=== PATIENT | male | born 1960 | race Caucasian/White ===

== ENCOUNTER 2019-12-17 19:27 | Emergency (ER) | payer OTHER, SELFPAY ==
--- NOTE | ~2019-12-17 | CT_ITS ---
EXAMINATION: CT brain wo con DATE: 12/17/2019 22:58 INDICATION: Headache and neck pain post fall TECHNIQUE: Computed tomography (CT) of the head was performed without intravenous contrast. Sagittal and coronal reconstructions were performed. The mA was adjusted according to patient size. Iterative reconstruction technique was employed. The dose-length product was 681.00 mGy-cm. COMPARISON: None FINDINGS: No fracture. No acute intracranial hemorrhage, acute infarction or abnormal extra axial fluid collect ion. Ventricles are normal and symmetric. No mass/mass effect. The orbits, and paranasal sinuses are normal. Small right mastoid effusion. IMPRESSION: 1. No fracture or acute intracranial process. Reviewed, dictated and finalized at location A.
--- NOTE | ~2019-12-17 | XR_ITS ---
EXAMINATION: XR thoracic spine 2V, XR lumbar spine 2-3V DATE: 12/17/2019 23:06 INDICATION: Diffuse spine pain post fall with tingling in the left arm TECHNIQUE: 1. AP, lateral and lateral swimmer's views of the thoracic spine were obtained. 2. AP, lateral and coned-down lumbosacral views of the lumbar spine were obtained. COMPARISON: None. FINDINGS: Alignment of the thoracic and lumbar spine is normal with normal vertebral body heights. Multilevel m ild disc height loss with mild degenerative endplate changes in the mid to lower thoracic spine. Lumb ar disc heights are normal with minimal degenerative endplate changes. 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 Mild lower lumbar facet osteoarthritis. Chol ecystectomy clips in the right upper quadrant. Visualized lungs are clear with no pleural effusion or pneumothorax. IMPRESSION: 1. Mild thoracic and lumbar spondylosis. No evident acute osseous abnormality. Reviewed, dictated and finalized at location A. IMPRESSION: 1. Mild thoracic and lumbar spondylosis. No evident acute osseous abnormality.
--- NOTE | ~2019-12-17 | CT_ITS ---
EXAMINATION: CT cervical spine wo con DATE: 12/17/2019 22:59 INDICATION: Neck pain post fall with head injury. Tingling in the left arm. TECHNIQUE: Computed tomography (CT) of the cervical spine was performed without intravenous contrast. Automated exposure control and iterative reconstruction technique were employed. The dose-length pro duct was 536.38 mGy-cm. COMPARISON: None FINDINGS: Straightening of the normal cervical lordosis which is likely positional. No spondylolisthesis or fac et subluxation. Vertebral body heights are normal. No fracture. Mild disc height loss at C4-C5 and C5 -C6. Cervical soft tissues are unremarkable. Visualized airway and apices of the lungs are clear. The following disc levels are specifically discussed: C2-C3: The disc does not extend beyond the endplate margin. There is mild bilateral uncovertebral jaida nt osteoarthritis. There is mild bilateral facet joint osteoarthritis. There is no neural foraminal s tenosis. There is no central canal stenosis. C3-C4: Disc is mildly bulging. There is mild bilateral uncovertebral joint osteoarthritis. There is m ild right and moderate left facet joint osteoarthritis. There is mild left neural foraminal stenosis. There is minimal central canal stenosis. C4-C5: Disc is bulging. There is minimal bilateral uncovertebral joint osteoarthritis. There is mild right facet joint osteoarthritis. There is no neural foraminal stenosis. There is mild central canal stenosis. C5-C6: Disc is bulging. There is mild right uncovertebral joint osteoarthritis. There is minimal bila teral facet joint osteoarthritis. There is no neural foraminal stenosis. There is mild central canal stenosis. C6-C7: Mild disc osteophyte complex. There is mild bilateral uncovertebral joint osteoarthritis. Ther e is mild right and minimal left facet joint osteoarthritis. There is no neural foraminal stenosis. T here is mild central canal stenosis. C7-T1: The disc does not extend beyond the endplate margin. There is no uncovertebral joint osteoarth ritis. There is mild bilateral facet joint osteoarthritis. There is no neural foraminal stenosis. The re is no central canal stenosis. IMPRESSION: 1. Mild cervical spondylosis. No acute osseous abnormality. Reviewed, dictated and finalized at location A.
[2019-12-17 19:40] VITALS: BP 177/86; PULSE 82; RESP 20; TEMP 37.3; O2SAT 100
[2019-12-17 21:55] LABS: Basophils Percent Auto 0.5 % (0.2-1.2); Eosinophils Absolute Auto 0.1 K/mm3 (0-0.3); Hematocrit 44.9 % (42.0-52.0); Hemoglobin 14.9 g/dL (14.0-18.0); Immature Granulocyte Absolute 0.02 K/mm3 (0.00-0.031); Immature Granulocyte Percent A 0.5 % (0-0.5); Lymphocytes Absolute Auto 0.91 K/mm3 (0.9-3.2); Lymphocytes Percent Auto 22.3 % (18.3-44.2); Mean Corpuscular HGB Conc 33.2 g/dl (32-36); Mean Corpuscular Hemoglobin 29.3 pg (26-34); Mean Corpuscular Volume 88.4 fl (80-100); Mean Platelet Volume 9.5 fl (7.4-10.4); Monocytes Absolute Auto 0.5 K/mm3 (0.1-0.6); Neutrophils Absolute Auto 2.5 K/mm3 (1.3-6.7); Neutrophils Percent Auto 61.7 % (45.5-73.1); Platelet Count Result 171 k/mm3 (150-375); Red Blood Count 5.08 M/mm3 (4.6-6.20); Red Cell Distribution Width 13.8 % (11.5-14.5); White Blood Count 4.1 K/mm3 (4.5-10.0)
[2019-12-17 22:37] LABS: Add Urine Microscopic? YES; Appearance Urine Clear (Clear); Bilirubin Urine Negative (Negative); Blood Urine Negative (Negative); Color Urine Yellow (Yellow); Glucose Urine UA 1+ mg/dL (Negative); Ketones Urine Negative (Negative); Leukocyte Esterase Ur Negative LEU/UL (Negative); Mucus Urine Few /lpf; Nitrate Urine Negative (Negative); Protein Urine 2+ mg/dL (Negative); RBC Urine 0-2 /hpf (0-2); Specific Grav Ur 1.026 (1.001-1.035); Squamous Epithelial Cell Urine Rare /hpf (Few); Urobilinogen Urine Negative mg/dL (<2.0); WBC Urine 0-3 /hpf
[2019-12-17 22:42] VITALS: BP 160/104; PULSE 78; RESP 18; O2SAT 99
[2019-12-17 22:50] LABS: Alanine Aminotransferase 31 U/L (4-50); Albumin Level 4.2 g/dL (3.5-5.1); Alkaline Phosphatase 88 U/L (38-126); Anion Gap 9 mmol/L (8-16); Aspartate Amino Transferase 52 U/L (17-59); Bilirubin,Total 0.7 mg/dL (0.2-1.3); Blood Urea Nitrogen 17 mg/dL (9-20); Calcium 8.5 mg/dL (8.4-10.2); Carbon Dioxide 27 mmol/L (22-30); Chloride 101 mmol/L (98-107); Creatine Kinase 177 U/L (55-170); Estimated Glomerular Filt Rate > 60; Glucose 154 mg/dL (75-110); Sodium 137 mmol/L (137-145)
--- NOTE | 2019-12-17 23:06 | PC.NURSE ---
Pt. to ct
--- NOTE | 2019-12-17 23:06 | PC.NURSE ---
Assumed care of pt at this time. Report from [facility]
--- NOTE | 2019-12-18 | ED.GENADULT ---
HPI - General Adult General Chief complaint: Fall Stated complaint: body aches since monday Time Seen by Provider: 12/17/19 21:38 Source: patient Limitations: no limitations History of Present Illness HPI narrative: Patient is a 59 y/o male complaining of headache, neck pain, back and bodyache. He states that he fell 4 days ago and again 3 days ago. He states that he did not have much pain initially, but pain is getting worse. He has not taken any meds for pain. He did use Biofreeze which did not help with his pain. He states that his pain is aching and rate it as 8/10. Related Data Home Medications Medication Instructions Recorded Confirmed finasteride 5 mg PO DAILY 12/17/19 lisinopril 20 mg PO DAILY 12/17/19 Allergies Allergy/AdvReac Type Severity Reaction Status Date / Time No Known Allergies Allergy Unknown Verified 01/07/18 13:45 Review of Systems Constitutional: Constitutional: Denies chills, Denies fever(s), Reports headache(s) and Denies weakness Eyes: Eyes: Denies blurry vision ENT: Reports headache(s) and Denies neck pain Cardiovascular: Cardiovascular: Denies chest pain and Denies dyspnea Respiratory: Respiratory: Denies cough and Denies dyspnea Gastrointestinal: Gastrointestinal: Denies abdominal pain, Denies diarrhea, Denies nausea and Denies vomiting Genitourinary: Genitourinary: Denies hematuria and Denies dysuria Musculoskeletal: Musculoskeletal: Reports back pain and Reports neck pain Neurologic: Reports headache(s) and Denies weakness [facility] Social History Social History Gender identity (if verbalized by the patient): Male Exam Const: General: no acute distress and well developed Orientation/consciousness: oriented to person, oriented to place, oriented to time and patient oriented x3 HENMT: Head: normocephalic Ears: external ears normal General nose exam: Normal external nose present Eyes: General: appearance normal, both eyes and all related structures Conjunctivae: conjunctivae normal Neck: Neck: normal visual inspection and full ROM Chest: Chest palpation & inspection: normal inspection of the chest and no tenderness Resp: Effort & Inspection: normal respiratory effort Auscultation: clear to auscultation bilaterally Cardio: Rate: regular rate Rhythm: regular rhythm GI: GI Palp: No abdominal tenderness and Yes Soft to palpation Skin: General skin exam: normal color and turgor normal Neuro: General: oriented to person, oriented to place, oriented to time and patient oriented x3 Cognition (Neuro): normal cognition Extrem: General: normal to inspection, full ROM and no pedal edema Psych: Appearance: grossly normal Mental Status: mental status grossly normal Affect: normal affect Course Vital Signs Vital signs: Vital Signs Temperature 37.3 C 12/17/19 19:40 Pulse Rate 82 12/17/19 19:40 Respiratory Rate 20 12/17/19 19:40 Blood Pressure 177/86 H 12/17/19 19:40 Pulse Oximetry 100 12/17/19 19:40 Temperature 37.3 C 12/17/19 19:40 Pulse Rate 90 12/18/19 00:37 Respiratory Rate 20 12/18/19 00:37 Blood Pressure 157/99 H 12/18/19 00:37 Pulse Oximetry 98 12/18/19 00:37 Medical Decision Making Vital Signs Vital Signs: Vital Signs Temperature 37.3 C 12/17/19 19:40 Pulse Rate 82 12/17/19 19:40 Respiratory Rate 20 12/17/19 19:40 Blood Pressure 177/86 H 12/17/19 19:40 Pulse Oximetry 100 12/17/19 19:40 Temperature 37.3 C 12/17/19 19:40 Pulse Rate 90 12/18/19 00:37 Respiratory Rate 20 12/18/19 00:37 Blood Pressure 157/99 H 12/18/19 00:37 Pulse Oximetry 98 12/18/19 00:37 Lab Data Result diagrams: 12/17/19 21:49 12/17/19 21:49 Labs: Lab Results 12/17/19 12/17/19 12/17/19 Range/Units 21:49 21:49 22:27 WBC 4.1 L (4.5-10.0) K/mm3 RBC 5.08 (4.6-6.20) M/mm3 Hgb 14.9 (14.0-18.0) g/dL Hct 44.9
[2019-12-18 00:37] VITALS: BP 157/99; PULSE 90; RESP 20; O2SAT 98
== END 2019-12-18 00:37 | disposition home or self-care (01) ==
PROVIDERS: Emergency Provider Emergency Medicine
DX: R51 Headache (principal); M79.10 Myalgia, unspecified site; W19.XXXA Unspecified fall, initial encounter
CPT/HCPCS: 36415; 70450; 72070; 72100; 72125; 80053; 81001; 82550; 85025; 99284; A9270

== ENCOUNTER 2020-06-19 03:38 | Day surgery (SDC) | payer OTHER, SELFPAY ==
[2020-06-19] VITALS (7 sets, daily range): BP systolic 135–186; BP diastolic 88–137; PULSE 77–89; RESP 16–27; TEMP 36.6–36.7; O2SAT 96–99
[2020-06-19] MEDS: GLUCAGON FOR INJ 1 MG VIAL IV PUSH ×2 (03:50→04:20)
--- NOTE | 2020-06-19 03:51 | ED.GENADULT ---
HPI - General Adult General Chief complaint: Skin/Abscess/Foreign Body Stated complaint: Meat stuck in throat Time Seen by Provider: 06/19/20 03:42 History of Present Illness HPI narrative: Patient is a 59-year-old gentleman who presents the emergency department with chief complaint of esophageal food impaction. The patient reports he was eating a pork steak this evening and felt as though it got stuck in his esophagus. The patient reports he has had this happen before in the past he attempted to take some sublingual nitro that he had at home but stated it was somewhat . Patient states that he has been unable to swallow and unable to handle his secretions. Patient reports that he is usually been able to pass it after he receives medication in the emergency department. Related Data Home Medications Medication Instructions Recorded Confirmed finasteride 5 mg PO DAILY 12/17/19 lisinopril 20 mg PO DAILY 12/17/19 Allergies Allergy/AdvReac Type Severity Reaction Status Date / Time No Known Allergies Allergy Unknown Verified 01/07/18 13:45 Review of Systems Review of Systems: Narrative: A 10 system review of systems was completed on the patient and is negative except for what is stated in the HPI. Nursing and ancillary documentation was reviewed. [facility] Social History Social History Gender identity (if verbalized by the patient): Male Comments History of cardiac disease has stents History of esophageal food impactions Social history the patient denies smoking Exam Narrative: Exam Narrative: GENERAL: Well-appearing, well-nourished, and in no acute distress. HEAD: Normocephalic, atraumatic. EYES: PERRLA and EOMI. ENT: Nares clear, no rhinorrhea or epistaxis. Mucous membranes moist. NECK: Supple. CHEST: Clear to auscultation. No respiratory distress. HEART: Regular rate and rhythm. No murmur heard. Normal peripheral pulses. ABDOMEN: Soft, nontender, nondistended, normal active bowel sounds. EXTREMITIES: Normal range of motion. No edema. SKIN: Warm, dry, no rash. NEURO: No focal deficits. Alert and oriented x3. PSYCH: Normal mood and affect. Course Course Emergency Course: Patient was treated with glucagon and sublingual nitro without success. The case was discussed with the on-call GI provider and the patient will be taken to the endoscopy suite this morning for endoscopy. Vital Signs Vital signs: Vital Signs Temperature 36.6 C 06/19/20 03:44 Pulse Rate 89 06/19/20 03:44 Respiratory Rate 18 06/19/20 03:44 Blood Pressure 186/137 H 06/19/20 03:44 Pulse Oximetry 99 06/19/20 03:44 Temperature 36.6 C 06/19/20 03:44 Pulse Rate 87 06/19/20 04:39 Respiratory Rate 18 06/19/20 04:39 Blood Pressure 172/94 H 06/19/20 04:39 Pulse Oximetry 96 06/19/20 04:39 Medical Decision Making Vital Signs Vital Signs: Vital Signs Temperature 36.6 C 06/19/20 03:44 Pulse Rate 89 06/19/20 03:44 Respiratory Rate 18 06/19/20 03:44 Blood Pressure 186/137 H 06/19/20 03:44 Pulse Oximetry 99 06/19/20 03:44 Temperature 36.6 C 06/19/20 03:44 Pulse Rate 87 06/19/20 04:39 Respiratory Rate 18 06/19/20 04:39 Blood Pressure 172/94 H 06/19/20 04:39 Pulse Oximetry 96 06/19/20 04:39 Discharge Plan Discharge Clinical Impression: Esophageal foreign body Qualifiers: Encounter type: initial encounter Qualified Code(s): T18.108A - Unspecified foreign body in esophagus causing other injury, initial encounter Patient Disposition: Still a Patient Condition: Stable Prescriptions: No Action lisinopril 20 mg tablet 20 mg PO DAILY RF: 0 finasteride 5 mg tablet 5 mg PO DAILY RF: 0 adifjeknue-pynotwgylqxho-irim [Fioricet] 50-300-40 mg capsule 1 cap PO Q8H PRN (Reason: headache) Qty: 10 RF: 0 cyclobenzaprine 5 mg tablet 5 mg PO TID PRN (Reason: muscle spasm) Qty: 15 RF: 0 Follow
[2020-06-19] MEDS: NITROGLYCERIN SL 0.4 MG TABLET SUBLINGUAL (04:21)
--- NOTE | 2020-06-19 04:40 | PC.NURSE ---
pt attempted to drink water, immediately vomited . MD dahl
--- NOTE | 2020-06-19 05:58 | WPDANESEPP ---
Anes - Eval Pre Procedure Date/Time: 06/19/20 05:58 Pre Op Diagnosis: Meat stuck in throat Patient Data Age: 59 Gender: M Height: 1.75 m Weight: 120 kg Last Vital Signs Temp 36.6 C 06/19/20 03:44 Pulse 87 06/19/20 04:39 Resp 18 06/19/20 04:39 BP 172/94 H 06/19/20 04:39 Pulse Ox 96 06/19/20 04:39 Allergies Allergy/AdvReac Type Severity Reaction Status Date / Time No Known Allergies Allergy Unknown Verified 01/07/18 13:45 Home Medications Medication Instructions Recorded Confirmed Type finasteride 5 mg PO DAILY 12/17/19 History lisinopril 20 mg PO DAILY 12/17/19 History fornqtxjtt-vtbenmwmmisgt-opaz 1 cap PO Q8H PRN #10 cap 12/18/19 Rx [Fioricet] cyclobenzaprine 5 mg PO TID PRN #15 tablet 12/18/19 Rx Patient hx anesthesia problems: none Family hx anesthesia problems: none PMFSH Social History Social History Gender identity (if verbalized by the patient): Male Exam Day of Procedure 06/19/20 05:58 Patient weight: obese Heart: regular rate and rhythm Lungs: clear to auscultation and normal air movement Airway: Mallampati scale class II Neurological: alert and oriented
[2020-06-19] MEDS: LACTATED RINGERS 1,000 ML 150 ML IV CONT (06:37)
[2020-06-19 06:40] LABS: Glucose Point of Care 381 (65-105)
--- NOTE | 2020-06-19 06:57 | WPDANESEPPF ---
Anes - Initial Pre Proc Eval Procedure: Operation Date: 06/19/20 07:30 Proposed Procedures p Esophagogastroduodenoscopy - Demetrius Daigle MD Date/Time: 06/19/20 06:57 Surgeon: Demetrius Daigle MD Pre Op Diagnosis: food bolus Patient Data Age: 59 Gender: M Height: 5 ft 9 in Weight: 120 kg Last Vital Signs Temp 36.7 C 06/19/20 06:31 Pulse 77 06/19/20 06:31 Resp 16 06/19/20 06:31 BP 147/88 H 06/19/20 06:31 Pulse Ox 97 06/19/20 06:31 Allergies Allergy/AdvReac Type Severity Reaction Status Date / Time No Known Allergies Allergy Unknown Verified 06/19/20 06:25 Home Medications Medication Instructions Recorded Confirmed Type finasteride 5 mg PO DAILY 12/17/19 06/19/20 History lisinopril 20 mg PO DAILY 12/17/19 06/19/20 History aspirin 81 mg PO DAILY 06/19/20 06/19/20 History canagliflozin-metformin [Invokamet] 1 tablet PO BID 06/19/20 06/19/20 History cholecalciferol (vitamin D3) 50,000 unit PO WEEKLY 06/19/20 06/19/20 History insulin glargine U-300 conc 35 unit SUBCUT BID 06/19/20 06/19/20 History [Toujeo Max U-300 SoloStar] omeprazole 20 mg PO BID 06/19/20 06/19/20 History rosuvastatin 20 mg PO DAILY 06/19/20 06/19/20 History tamsulosin 0.4 mg PO DAILY 06/19/20 06/19/20 History Laboratory Tests 06/19/20 06:34 POC Capillary Glucose 381 mg/dl H mg/dl (65-105) Patient hx anesthesia problems: none Family hx anesthesia problems: none PMFSH Past Medical History Medical History (Updated 06/19/20 @ 06:58 by Yeison Galvez MD) CAD (coronary artery disease) Diabetes Morbid obesity [place] (obstructive sleep apnea) Social History Social History Gender identity (if verbalized by the patient): Male Anes - Eval Final PreProcedure Day of Procedure 06/19/20 06:57 Patient weight: morbidly obese Heart: regular rate and rhythm Lungs: clear to auscultation Airway: Mallampati scale class II Neurological: alert and oriented Last oral intake: >/= 8 hours ASA classification: III Emergent: no Anesthetic plan: proceed Anesthesia type and monitoring: general (GIVS with possible ETT) GIVS and standard monitoring Informed Consent: The patient's anesthetic plan and its attendant risks and benefits were discussed with the patient/family/POA. Questions were solicited and answers provided to the satisfaction of the patient/family/POA.
--- NOTE | 2020-06-19 07:20 | PM.HPGS ---
History of Present Illness History of Present Illness Consent: Risks, benefits, and alternatives have been discussed and questions answered. Patient agrees to proceed with procedure. Chief complaint: food bolus Narrative: Oj Case is a 59 year old male with history of GERD on prilosec and also dysphagia, he has been in ER previously with food bolus but always resolved after medical treatment, never had EGD. Yesterday had pork chop, then unable to swallow anymore, glucagon this time did not work and I was asked by ER to assess patient. Review of Systems Constitutional: Constitutional: Denies headache(s) and Denies weakness Eyes: Eyes: Denies blurry vision ENT: Reports Normal hearing present, Denies headache(s) and Denies neck pain Cardiovascular: Cardiovascular: Denies chest pain and Denies dyspnea Respiratory: Respiratory: Denies dyspnea Gastrointestinal: Gastrointestinal: Reports no additional gastrointestinal complaints Genitourinary: Genitourinary: Denies dysuria Musculoskeletal: Musculoskeletal: Denies neck pain Integumentary/Breasts: Skin/Breast: Denies dry skin Neurologic: Reports Normal hearing present, Denies headache(s) and Denies weakness Psychiatric: Psychiatric: Denies anxiety Endocrine: Endocrine: Denies change in body appearance Hematologic/Lymphatic: Hematologic/Lymphatic: Denies easy bleeding Allergic/Immunologic: Allergic/Immunologic: Denies urticaria PMFSH Past Medical History Medical History (Updated 06/19/20 @ 07:22 by Demetrius Daigle MD) CAD (coronary artery disease) Diabetes Dysphagia Morbid obesity [place] (obstructive sleep apnea) Social History Social History Gender identity (if verbalized by the patient): Male Meds Home Medications and Allergies Home Medications Medication Instructions Recorded Confirmed Type finasteride 5 mg PO DAILY 12/17/19 06/19/20 History lisinopril 20 mg PO DAILY 12/17/19 06/19/20 History aspirin 81 mg PO DAILY 06/19/20 06/19/20 History canagliflozin-metformin [Invokamet] 1 tablet PO BID 06/19/20 06/19/20 History cholecalciferol (vitamin D3) 50,000 unit PO WEEKLY 06/19/20 06/19/20 History insulin glargine U-300 conc 35 unit SUBCUT BID 06/19/20 06/19/20 History [Kalyani Concepcion U-300 SoloStar] omeprazole 20 mg PO BID 06/19/20 06/19/20 History rosuvastatin 20 mg PO DAILY 06/19/20 06/19/20 History tamsulosin 0.4 mg PO DAILY 06/19/20 06/19/20 History Allergies Allergy/AdvReac Type Severity Reaction Status Date / Time No Known Allergies Allergy Unknown Verified 06/19/20 06:25 Vital Signs Vital Signs - 24 hr 06/19/20 03:44 06/19/20 04:39 06/19/20 06:31 Temperature 97.8 F 98.0 F Pulse Rate 89 87 77 Respiratory Rate 18 18 16 Blood Pressure 186/137 H 172/94 H 147/88 H Pulse Oximetry 99 96 97 06/19/20 06:57 Temperature 97.8 F Pulse Rate 87 Respiratory Rate 18 Blood Pressure 167/97 H Pulse Oximetry 98 Exam Const: General: comfortable and no acute distress HENMT: General nose exam: Normal nares present Eyes: General: appearance normal, both eyes and all related structures Neck: Neck: no JVD Resp: Auscultation: clear to auscultation bilaterally Cardio: Rate: regular rate Rhythm: regular rhythm GI: Inspection: non-distended GI Palp: Yes Soft to palpation Skin: General skin exam: normal color Neuro: General: gait normal Speech: normal speech Extrem: General: normal to inspection Psych: Mental Status: mental status grossly normal Assessment and Plan Assessment and plan (1) Esophageal foreign body: Qualifiers: Encounter type: initial encounter Qualified Code(s): T18.108A - Unspecified foreign body in esophagus causing other injury, initial encounter Code(s): T18.108A - Unspecified foreign body in esophagus causing other injury, initial encounter Status: Acute Assessment and Plan: urgent egd to remove
== END 2020-06-19 08:14 | disposition home or self-care (01) ==
LOC: ANHED 05:21 → ANHSURGERY 06:49
PROVIDERS: Emergency Provider Emergency Medicine; Visit Provider Internal Medicine Gastroenterology
PROC: 0DJ08ZZ Inspection of Upper Intestinal Tract, Via Natural or Artificial Opening Endoscopic (ICD-10-PCS; CPT 43235; principal; 2020-06-19 07:30)
DX: T18.128A Food in esophagus causing other injury, initial encounter (principal); K20.0 Eosinophilic esophagitis; K29.50 Unspecified chronic gastritis without bleeding; R13.10 Dysphagia, unspecified; I25.10 Atherosclerotic heart disease of native coronary artery without angina pectoris; E11.9 Type 2 diabetes mellitus without complications; G47.33 Obstructive sleep apnea (adult) (pediatric); Z95.5 Presence of coronary angioplasty implant and graft; E66.01 Morbid (severe) obesity due to excess calories; Z68.39 Body mass index [BMI] 39.0-39.9, adult; Z79.82 Long term (current) use of aspirin; Z79.4 Long term (current) use of insulin
CPT/HCPCS: 43247; 43239; 82948; 88305; 96374; 99285; A9270; J1610; J2704; J7120

== ENCOUNTER → 2020-12-26 00:27 | Outpatient (CLI) | payer BC, SELFPAY ==
[2020-12-26 22:45] LABS: SARS-CoV-2 RNA PCR Negative
== END ==
PROVIDERS: PCP Family Medicine Adolescent Medicine; Visit Provider Internal Medicine Gastroenterology
DX: Z01.812 Encounter for preprocedural laboratory examination (principal); Z20.822 Contact with and (suspected) exposure to COVID-19
CPT/HCPCS: C9803; U0003; U0005

== ENCOUNTER 2020-12-30 00:26 | Day surgery (SDC) | payer BC, SELFPAY ==
[2020-12-25 15:45] VITALS: BMI 39.5
[2020-12-30 10:37] VITALS: BP 220/111; PULSE 66; RESP 18; TEMP 36.6; O2SAT 97; BMI 40.5
[2020-12-30] MEDS: LACTATED RINGERS 1,000 ML 150 ML IV CONT (11:01)
--- NOTE | 2020-12-30 11:02 | PM.HPGS ---
History of Present Illness History of Present Illness Consent: Risks, benefits, and alternatives have been discussed and questions answered. Patient agrees to proceed with procedure. Chief complaint: Dysphagia Narrative: Oj Case is a 60 year old male with intermittent dysphagia despite using ppi twice daily, EGD 06/2020 with food bolus, egd and path findings consistent with EoE, he has not started steroids yet Review of Systems Constitutional: Constitutional: Denies headache(s) and Denies weakness Eyes: Eyes: Denies blurry vision ENT: Reports Normal hearing present, Denies headache(s) and Denies neck pain Cardiovascular: Cardiovascular: Denies chest pain and Denies dyspnea Respiratory: Respiratory: Denies dyspnea Gastrointestinal: Gastrointestinal: Reports no additional gastrointestinal complaints Genitourinary: Genitourinary: Denies dysuria Musculoskeletal: Musculoskeletal: Denies neck pain Integumentary/Breasts: Skin/Breast: Denies dry skin Neurologic: Reports Normal hearing present, Denies headache(s) and Denies weakness Psychiatric: Psychiatric: Denies anxiety Endocrine: Endocrine: Denies change in body appearance Hematologic/Lymphatic: Hematologic/Lymphatic: Denies easy bleeding Allergic/Immunologic: Allergic/Immunologic: Denies urticaria [facility] Past Medical History Medical History (Updated 12/21/20 @ 10:17 by DEL Reyes) CAD (coronary artery disease) Diabetes Dysphagia Eosinophilic esophagitis Morbid obesity Obese [place] (obstructive sleep apnea) Social History Social History Tobacco type: cigars Smokeless tobacco user: chewing tobacco Additional smoking assessment comments: STOPPED CHEWING 1999 Alcohol intake: current Drinks per week: 12 Alcohol use details: BEER Substance use: never Substance use type: does not use Living arrangements: with family Gender identity (if verbalized by the patient): Male Spiritual care concerns: No Meds Home Medications and Allergies Home Medications Medication Instructions Recorded Confirmed Type finasteride 5 mg PO DAILY 12/17/19 12/30/20 History lisinopril 20 mg PO DAILY 12/17/19 12/30/20 History aspirin 81 mg PO DAILY 06/19/20 12/30/20 History insulin glargine U-300 conc 35 unit SUBCUT QAM 06/19/20 12/30/20 History [Toujeo Max U-300 SoloStar] rosuvastatin 20 mg PO DAILY 06/19/20 12/30/20 History tamsulosin 0.4 mg PO DAILY 06/19/20 12/30/20 History fluticasone propionate 220 2 puff INHALATION Q12H 30 Days #12 12/21/20 12/30/20 Rx mcg/actuation HFA aerosol inhaler g Gold Dietary Supplement 1 cap PO TIDWMEAL 12/29/20 12/30/20 History bethanechol chloride 25 mg PO BID 12/29/20 12/30/20 History carvedilol 6.25 mg PO BID 12/29/20 12/30/20 History ergocalciferol (vitamin D2) 1,250 mcg PO WEEKLY 12/29/20 12/30/20 History [Vitamin D2] insulin glargine U-300 conc 30 unit SUBCUT QPM 12/29/20 12/30/20 History [Toujeo Max U-300 SoloStar] omeprazole 40 mg PO BID 12/29/20 12/30/20 History Allergies Allergy/AdvReac Type Severity Reaction Status Date / Time No Known Allergies Allergy Unknown Verified 12/30/20 10:46 Vital Signs Vital Signs - 24 hr 12/30/20 10:37 Temperature 97.9 F Pulse Rate 66 Respiratory Rate 18 Blood Pressure 220/111 H Pulse Oximetry 97 Exam Const: General: comfortable and no acute distress HENMT: General nose exam: Normal nares present Eyes: General: appearance normal, both eyes and all related structures Neck: Neck: no JVD Resp: Auscultation: clear to auscultation bilaterally Cardio: Rate: regular rate Rhythm: regular rhythm GI: Inspection: non-distended GI Palp: Yes Soft to palpation Skin: General skin exam: normal color Neuro: General: gait normal Speech: normal speech Extrem: General: normal to inspection Psych: Mental Status: mental status grossly normal Assessment and Plan As
[2020-12-30 11:04] LABS: Glucose Point of Care 170 mg/dl (65-105)
--- NOTE | 2020-12-30 11:07 | WPDANESEPPF ---
Anes - Initial Pre Proc Eval Procedure: Operation Date: 12/30/20 11:30 Proposed Procedures p Esophagogastroduodenoscopy - Demetrius Daigle MD Date/Time: 12/30/20 11:07 Surgeon: Demetrius Daigle MD Pre Op Diagnosis: Dysphagia Patient Data Age: 60 Gender: M Height: 1.73 m Weight: 121 kg Last Vital Signs Temp 97.9 F 12/30/20 10:37 Pulse 66 12/30/20 10:37 Resp 18 12/30/20 10:37 BP 220/111 H 12/30/20 10:37 Pulse Ox 97 12/30/20 10:37 Allergies Allergy/AdvReac Type Severity Reaction Status Date / Time No Known Allergies Allergy Unknown Verified 12/30/20 10:46 Home Medications Medication Instructions Recorded Confirmed Type finasteride 5 mg PO DAILY 12/17/19 12/30/20 History lisinopril 20 mg PO DAILY 12/17/19 12/30/20 History aspirin 81 mg PO DAILY 06/19/20 12/30/20 History insulin glargine U-300 conc 35 unit SUBCUT QAM 06/19/20 12/30/20 History [Toujeo Max U-300 SoloStar] rosuvastatin 20 mg PO DAILY 06/19/20 12/30/20 History tamsulosin 0.4 mg PO DAILY 06/19/20 12/30/20 History fluticasone propionate 220 2 puff INHALATION Q12H 30 Days #12 12/21/20 12/30/20 Rx mcg/actuation HFA aerosol inhaler g Gold Dietary Supplement 1 cap PO TIDWMEAL 12/29/20 12/30/20 History bethanechol chloride 25 mg PO BID 12/29/20 12/30/20 History carvedilol 6.25 mg PO BID 12/29/20 12/30/20 History ergocalciferol (vitamin D2) 1,250 mcg PO WEEKLY 12/29/20 12/30/20 History [Vitamin D2] insulin glargine U-300 conc 30 unit SUBCUT QPM 12/29/20 12/30/20 History [Toujeo Max U-300 SoloStar] omeprazole 40 mg PO BID 12/29/20 12/30/20 History Laboratory Tests 12/30/20 10:53 POC Capillary Glucose 170 mg/dl H mg/dl (65-105) Patient hx anesthesia problems: none Family hx anesthesia problems: none PMFSH Past Medical History Medical History (Updated 12/21/20 @ 10:17 by Rakel Lopez APN-C) CAD (coronary artery disease) Diabetes Dysphagia Eosinophilic esophagitis Morbid obesity Obese AMERICA (obstructive sleep apnea) Social History Social History Tobacco type: cigars Smokeless tobacco user: chewing tobacco Additional smoking assessment comments: STOPPED CHEWING 1999 Alcohol intake: current Drinks per week: 12 Alcohol use details: BEER Substance use: never Substance use type: does not use Living arrangements: with family Gender identity (if verbalized by the patient): Male Spiritual care concerns: No Anes - Eval Final PreProcedure Day of Procedure 12/30/20 11:07 Patient weight: morbidly obese Heart: regular rate and rhythm Lungs: clear to auscultation Airway: Mallampati scale Last oral intake: >/= 8 hours ASA classification: III Emergent: no Anesthetic plan: proceed Anesthesia type and monitoring: general GIVS and standard monitoring Informed Consent: The patient's anesthetic plan and its attendant risks and benefits were discussed with the patient/family/POA. Questions were solicited and answers provided to the satisfaction of the patient/family/POA.
[2020-12-30 11:21] VITALS: BP 168/93; PULSE 66; RESP 18; O2SAT 97
[2020-12-30 11:31] VITALS: BP 141/94; PULSE 58; RESP 18; O2SAT 97
[2020-12-30 11:41] VITALS: BP 156/100; PULSE 60; RESP 18; O2SAT 98
[2020-12-30 11:51] VITALS: BP 155/101; PULSE 62; RESP 18; O2SAT 98
== END 2020-12-30 11:58 | disposition home or self-care (01) ==
PROVIDERS: PCP Family Medicine Adolescent Medicine; Visit Provider Internal Medicine Gastroenterology
PROC: 0DJ08ZZ Inspection of Upper Intestinal Tract, Via Natural or Artificial Opening Endoscopic (ICD-10-PCS; CPT 43235; principal; 2020-12-30 11:30)
DX: K20.0 Eosinophilic esophagitis (principal); R13.10 Dysphagia, unspecified; K29.70 Gastritis, unspecified, without bleeding; I25.10 Atherosclerotic heart disease of native coronary artery without angina pectoris; E11.9 Type 2 diabetes mellitus without complications; G47.33 Obstructive sleep apnea (adult) (pediatric); E66.01 Morbid (severe) obesity due to excess calories; Z68.41 Body mass index [BMI] 40.0-44.9, adult; Z72.0 Tobacco use; Z79.82 Long term (current) use of aspirin; Z79.4 Long term (current) use of insulin
CPT/HCPCS: 43239; 82948; 88305; C9803; J2704; J7120; U0003; U0005

== ENCOUNTER 2021-12-12 19:12 | Emergency (ER) | payer BC, SELFPAY ==
[2021-12-12] VITALS (7 sets, daily range): BP systolic 162–184; BP diastolic 87–99; PULSE 67–73; RESP 16–22; TEMP 36.8; O2SAT 95–98
--- NOTE | ~2021-12-12 | XR_ITS ---
[XR ribs RT 2V w CXR 2V ] INDICATION: Right rib pain TECHNIQUE: Frontal projection of the upper right ribs, frontal projection of the lower right ribs, ob lique projection of all the right ribs, frontal inspiratory chest x-ray for interpretation. FINDINGS: There are no displaced rib fractures identified. There are no soft tissue abnormality see n. The lungs are clear. Moderate cardiomegaly. IMPRESSION: 1:No acute displaced rib fractures. 2: Cardiomegaly. Reviewed, dictated and finalized at location A.
--- NOTE | 2021-12-12 19:43 | ECG_ITS ---
Measurements Intervals [place] Rate: 74 P: -14 [place]: 159 QRS: 18 QRSD: 98 T: 30 QT: 372 QTc: 414 Interpretive Statements SINUS RHYTHM NORMAL ECG NO PREVIOUS ECG AVAILABLE FOR COMPARISON Electronically Signed On 12-13-2021 13:56:46 CDT by Michele Medina M.D.
--- NOTE | 2021-12-12 19:45 | ED.GENADULT ---
HPI - General Adult General Chief complaint: Unspecified Stated complaint: upper back pain Time Seen by Provider: 12/12/21 19:23 Source: patient Mode of arrival: ambulatory Limitations: no limitations History of Present Illness HPI narrative: This is a 61 year old male that presents to the ER for right sided mid back pain. Present over the last 5 days. The pain is worse with movement and relieved with rest. He took his Oxycodone with little relief. Reports the other day the pain radiated into his chest. Denies any current chest pain, shortness of breath or lower extremity edema. Does report he fell down a couple of steps about a week ago. He did not hit his head or lose consciousness. Initially he was not really having any pain so he had not been evaluated yet. Related Data Home Medications Medication Instructions Recorded Confirmed aspirin 81 mg tablet,delayed 81 mg PO DAILY 06/19/20 10/12/21 release Gold Dietary Supplement 1 cap PO TIDWMEAL 12/29/20 10/12/21 carvedilol 6.25 mg tablet 6.25 mg PO BID 12/29/20 10/12/21 omeprazole 40 mg capsule,delayed 40 mg PO BID 12/29/20 10/12/21 release Allergies Allergy/AdvReac Type Severity Reaction Status Date / Time No Known Allergies Allergy Unknown Verified 12/12/21 19:17 Review of Systems Review of Systems: CONSTITUTIONAL: Denies fever CARDIOVASCULAR: Denies chest pain, or edema. RESPIRATORY: Denies dyspnea. SKIN: Denies rash MUSCULOSKELETAL: Reports back pain, joint pain, and myalgia. NEUROLOGIC: Denies numbness, or weakness. All systems reviewed & are unremarkable except as noted in HPI and below [facility] Past Medical History Medical History (Updated 12/12/21 @ 21:40 by Hayley Diaz PA-C) CAD (coronary artery disease) Diabetes Dysphagia Eosinophilic esophagitis GERD (gastroesophageal reflux disease) Morbid obesity Obese AMERICA (obstructive sleep apnea) Surgical History Surgical History (Updated 07/21/21 @ 07:44 by Modesto Graff MD) History of appendectomy History of cholecystectomy History of inguinal hernia repair Family History Family History (Updated 07/21/21 @ 07:46 by Modesto Graff MD) Father Pancreatic cancer Mother Breast cancer Lung cancer Sibling Diabetes mellitus Hypertension Breast cancer Sibling Hypertension Social History Social History (Updated 07/22/21 @ 15:40 by Tito Wise MA) Smoking status: Current some day smoker Tobacco type: cigars Second hand tobacco smoke exposure: No Additional smoking assessment comments: STOPPED CHEWING 1999 Alcohol intake: current Drinks per week: 12 Alcohol use details: BEER Substance use: never Substance use type: does not use Gender identity (if verbalized by the patient): Male Sexual Orientation (if Verbalized by the Patient): Straight or Heterosexual Spiritual care concerns: No Agree to blood products: Yes Exam Narrative: GENERAL: Well-appearing, well-nourished, and in no acute distress. HEAD: Normocephalic, atraumatic. EYES: PERRLA and EOMI. ENT: Nares clear, no rhinorrhea or epistaxis. Mucous membranes moist. Oropharynx without tonsillar hypertrophy exudate or other lesions. Bilateral TMs pearly [place]ampo non-bulging NECK: Supple. No adenopathy or masses. No midline spinal tenderness CHEST: Clear to auscultation. No respiratory distress. No wheezes rales or rhonchi HEART: Regular rate and rhythm. No murmur heard. Normal peripheral pulses. BACK: No midline thoracic or lumbar spine tenderness. Tender to palpation of the right sided thoracic paraspinal musculature and right posterior ribs EXTREMITIES: Normal range of motion. No edema or obvious deformity SKIN: Warm, dry, no rash. NEURO: No focal deficits. Alert and oriented x3. Cranial nerves II through XII grossly intact PSYCH: Normal mood and affect Course Vital Signs Vital signs: Vital Signs Temperature 98.3 F 12/12/21 19:14 Pulse Rate 72 12/12/21 19:14 Respi
[2021-12-12] MEDS: diazePAM INJ (*CRX) 10 MG/2 ML SYRINGE 5 MG IV PUSH (20:13)
[2021-12-12] MEDS: ACETAMINOPHEN 500 MG TABLET 1000 MG PO (20:13)
[2021-12-12 20:16] LABS: Basophils Percent Auto 0.5 % (0.2-1.2); Eosinophils Absolute Auto 0.2 K/mm3 (0-0.3); Eosinophils Percent Auto 2.4 % (0-4.4); Hemoglobin 13.5 g/dL (14.0-18.0); Immature Granulocyte Absolute 0.05 K/mm3 (0.00-0.031); Immature Granulocyte Percent A 0.6 % (0-0.5); Lymphocytes Absolute Auto 1.66 K/mm3 (0.9-3.2); Lymphocytes Percent Auto 20.3 % (18.3-44.2); Mean Corpuscular HGB Conc 32.1 g/dl (32-36); Mean Platelet Volume 9.4 fl (7.4-10.4); Monocytes Absolute Auto 0.9 K/mm3 (0.1-0.6); Monocytes Percent Auto 10.4 % (2.6-8.5); Neutrophils Absolute Auto 5.4 K/mm3 (1.3-6.7); Neutrophils Percent Auto 65.8 % (45.5-73.1); Platelet Count Result 247 k/mm3 (150-375); Red Blood Count 4.83 M/mm3 (4.6-6.20); White Blood Count 8.2 K/mm3 (4.5-10.0)
[2021-12-12 20:28] LABS: Alanine Aminotransferase 17 U/L (6-50); Albumin Level 4.2 g/dL (3.5-5.1); Alkaline Phosphatase 90 U/L (38-126); Anion Gap 8 mmol/L (8-16); Aspartate Amino Transferase 20 U/L (17-59); Bilirubin,Total 0.4 mg/dL (0.2-1.3); Blood Urea Nitrogen 20 mg/dL (9-20); Calcium 8.7 mg/dL (8.4-10.2); Carbon Dioxide 28 mmol/L (22-30); Chloride 104 mmol/L (98-107); Estimated CRCL calculation 73 ml/min; Estimated Glomerular Filt Rate > 60; Glucose 148 mg/dL (65-110); Potassium 3.9 mmol/L (3.4-5.0); Sodium 140 mmol/L (137-145)
[2021-12-12 20:31] LABS: Lipase 45 U/L (23-300)
[2021-12-12 20:40] LABS: Troponin I < 0.012 ng/mL (0.000-0.034)
[2021-12-12] MEDS: KETOROLAC 15 MG/ML VIAL (*BKC) IV PUSH (21:00)
== END 2021-12-12 21:50 | disposition home or self-care (01) ==
PROVIDERS: Physician Assistant; Emergency Provider Preventive Medicine Aerospace Medicine; PCP Family Medicine Adolescent Medicine
DX: M54.6 Pain in thoracic spine (principal); I25.10 Atherosclerotic heart disease of native coronary artery without angina pectoris; E11.9 Type 2 diabetes mellitus without complications; K20.0 Eosinophilic esophagitis; K21.9 Gastro-esophageal reflux disease without esophagitis; E66.9 Obesity, unspecified; Z68.41 Body mass index [BMI] 40.0-44.9, adult; G47.33 Obstructive sleep apnea (adult) (pediatric); F17.290 Nicotine dependence, other tobacco product, uncomplicated; I51.7 Cardiomegaly; Z79.82 Long term (current) use of aspirin; Z79.4 Long term (current) use of insulin
CPT/HCPCS: 36415; 71046; 71100; 80053; 83690; 84484; 85025; 93005; 96374; 96375; 99284; A9270; J1885; J3360

== ENCOUNTER 2022-03-21 21:20 | Emergency (ER) | payer BC, SELFPAY ==
[2022-03-21 21:26] VITALS: BP 166/80; PULSE 71; RESP 18; TEMP 36.5; O2SAT 100
--- NOTE | 2022-03-21 22:04 | ED.WOUNDLAC ---
HPI - Wound/Laceration General Chief Complaint: Wound/Laceration Stated Complaint: finger lac Time Seen by Provider: 03/21/22 21:38 History of Present Illness HPI narrative: 61-year-old male presents emergency room for evaluation of finger laceration to his left middle finger. Patient states that he was butchering deer prior to arrival, when the knife went through the meat slicing his finger. Patient states his tetanus is up-to-date. Bleeding trolled prior to arrival Related Data Home Medications Medication Instructions Recorded Confirmed aspirin 81 mg tablet,delayed 81 mg PO DAILY 06/19/20 10/12/21 release Gold Dietary Supplement 1 cap PO TIDWMEAL 12/29/20 10/12/21 carvedilol 6.25 mg tablet 6.25 mg PO BID 12/29/20 10/12/21 omeprazole 40 mg capsule,delayed 40 mg PO BID 12/29/20 10/12/21 release Allergies Allergy/AdvReac Type Severity Reaction Status Date / Time No Known Allergies Allergy Unknown Verified 03/21/22 21:22 Review of Systems Review of Systems: CONSTITUTIONAL: Denies fever, chills, or sweats. EYES: Denies visual changes, redness, or discharge. ENT: Denies rhinorrhea, congestion, sore throat, or otalgia. CARDIOVASCULAR: Denies chest pain, palpitations, or edema. RESPIRATORY: Denies cough or dyspnea. GASTROINTESTINAL: Denies abdominal pain, nausea, vomiting, or diarrhea. GENITOURINARY: Denies dysuria or hematuria. SKIN: Reports laceration to her left middle finger MUSCULOSKELETAL: Denies back pain, joint pain, or myalgia. NEUROLOGIC: Denies headache, numbness, dizziness, or weakness. PSYCHIATRIC: Denies anxiety or depression. [facility] Past Medical History Medical History CAD (coronary artery disease) Diabetes Dysphagia Eosinophilic esophagitis GERD (gastroesophageal reflux disease) Morbid obesity Obese [place] (obstructive sleep apnea) Surgical History Surgical History History of appendectomy History of cholecystectomy History of inguinal hernia repair Family History Family History Father Pancreatic cancer Mother Breast cancer Lung cancer Sibling Diabetes mellitus Hypertension Breast cancer Sibling Hypertension Social History Social History Smoking status: Current some day smoker Tobacco type: cigars Second hand tobacco smoke exposure: No Additional smoking assessment comments: STOPPED CHEWING 1999 Alcohol intake: current Drinks per week: 12 Alcohol use details: BEER Substance use: never Substance use type: does not use Gender identity (if verbalized by the patient): Male Sexual Orientation (if Verbalized by the Patient): Straight or Heterosexual Spiritual care concerns: No Agree to blood products: Yes Exam Narrative: GENERAL: Well-appearing, well-nourished, no physical limitations, and in no acute distress. HEAD: Normocephalic, atraumatic. EYES: Conjunctivae normal, PERRLA and EOMI. CHEST: Clear to auscultation. No respiratory distress. No wheezes rales or rhonchi. HEART: Regular rate and rhythm. No murmur heard. Normal peripheral pulses. ABDOMEN: Soft, nontender, nondistended, normal active bowel sounds. SKIN: Left middle finger: 2 and half centimeter linear laceration to the finger pad NEURO: No focal deficits. Alert and oriented x3. MAEW. CN's II-XI intact bilaterally, normal gait PSYCH: Cooperative. Normal mood and affect. Course Vital Signs Vital signs: Vital Signs Temperature 36.5 C 03/21/22 21:26 Pulse Rate 71 03/21/22 21:26 Respiratory Rate 18 03/21/22 21:26 Blood Pressure 166/80 H 03/21/22 21:26 Pulse Oximetry 100 03/21/22 21:26 Temperature 36.5 C 03/21/22 21:26 Pulse Rate 71 03/21/22 21:26 Respiratory Rate 18 03/21/22 21:26 Blood Pressure 166/80 H 03/21/22 21:26 Pulse Oximetry
== END 2022-03-21 23:01 | disposition home or self-care (01) ==
LOC: ANHED 22:39
PROVIDERS: Emergency Provider Nurse Practitioner Family; PCP Family Medicine Adolescent Medicine
DX: S61.213A Laceration without foreign body of left middle finger without damage to nail, initial encounter (principal); I25.10 Atherosclerotic heart disease of native coronary artery without angina pectoris; E11.9 Type 2 diabetes mellitus without complications; K21.9 Gastro-esophageal reflux disease without esophagitis; G47.33 Obstructive sleep apnea (adult) (pediatric); E66.01 Morbid (severe) obesity due to excess calories; Z68.41 Body mass index [BMI] 40.0-44.9, adult; Z87.891 Personal history of nicotine dependence; Z79.4 Long term (current) use of insulin; Z79.84 Long term (current) use of oral hypoglycemic drugs; Z79.82 Long term (current) use of aspirin; W26.0XXA Contact with knife, initial encounter
CPT/HCPCS: 12001; 99283

== ENCOUNTER 2022-09-08 21:41 | Emergency (ER) | payer BC, SELFPAY ==
--- NOTE | ~2022-09-08 | CT_ITS ---
EXAMINATION: CT brain wo con DATE: 09/08/2022 22:13 INDICATION: Left hemiparesis. TECHNIQUE: Computed tomography (CT) of the head was performed without intravenous contrast. The mA wa s adjusted according to patient size. Iterative reconstruction technique was employed. The dose-lengt h product was 681.00 mGy-cm. COMPARISON: Head CT 12/17/2019 FINDINGS: There is no intracranial hemorrhage, acute infarction, or abnormal intracranial mass lesion . The ventricles are normal in size. The orbits are normal. There is mild mucosal thickening in the p aranasal sinuses. The mastoid air cells are normal. IMPRESSION: 1. Normal brain. Reviewed, dictated and finalized at location E. IMPRESSION: 1. Normal brain.
--- NOTE | ~2022-09-08 | CT_ITS ---
EXAMINATION: CTA brain carotid DATE: 09/08/2022 22:37 INDICATION: Left hemiparesis. TECHNIQUE: Computed tomographic angiography (CTA) of the head was performed with 100 mL Omnipaque-350 intravenous contrast. CTA of the neck was performed with intravenous contrast. Automated exposure co ntrol and iterative reconstruction technique were employed. The dose-length product was 1667.16 mGy-c m. Maximum intensity projection and volume rendered 3D-reconstructions were created by the [employer] on a separate workstation. COMPARISON: Head CT 09/08/2022 FINDINGS: HEAD CTA: There is no intracranial hemorrhage, acute infarction, or abnormal intracranial mass lesion . The ventricles are normal in size. The orbits are normal. There is mucosal thickening in the [place] sinuses. The mastoid air cells are normal. Left vertebral artery is dominant. There is no signifi cant stenosis of basilar artery or the posterior cerebral arteries. The posterior communicating arter ies are normal. There is no significant stenosis of the intracranial internal carotid arteries or ant erior or middle cerebral arteries. Anterior communicating artery is normal. There is no aneurysm. NECK CTA: There are no pathologically enlarged lymph nodes. There is no significant stenosis of the v ertebral arteries. There is plaque in the proximal internal carotid arteries. There is 0% stenosis of the proximal right internal carotid artery relative to normal distal artery lumen diameter (NASCET c riteria). There is 0% stenosis of the proximal left internal carotid artery relative to normal distal artery lumen diameter. There are changes of anterior fusion procedure from C5 to C7. IMPRESSION: 1. Normal brain. No aneurysm or significant intracranial arterial stenosis. 2. 0% stenosis of the proximal internal carotid arteries relative to normal distal artery lumen diame ters (NASCET criteria). Reviewed, dictated and finalized at location E. IMPRESSION: 1. Normal brain. No aneurysm or significant intracranial arterial stenosis. 2. 0% stenosis of the proximal internal carotid arteries relative to normal dis milo artery lumen diameters (NASCET criteria).
--- NOTE | ~2022-09-08 | XR_ITS ---
EXAMINATION: XR chest 1V portable DATE: 09/08/2022 22:16 INDICATION: Weakness. TECHNIQUE: A single frontal view of the chest was obtained. COMPARISON: Chest 2 views 12/12/2021 FINDINGS: There is no pneumonia, pleural effusion, or pneumothorax. Cardiomegaly is noted. There are prominent paracardial fat pads. There are changes of anterior fusion procedure in cervical spine. IMPRESSION: 1. Cardiomegaly. Reviewed, dictated and finalized at location E. IMPRESSION: 1. Cardiomegaly.
[2022-09-08 21:45] VITALS: BP 133/69; PULSE 75; RESP 18; TEMP 36.7; O2SAT 92
--- NOTE | 2022-09-08 21:57 | ECG_ITS ---
Measurements Intervals [place] Rate: 73 P: -12 [place]: 178 QRS: 2 QRSD: 102 T: 34 QT: 381 QTc: 422 Interpretive Statements SINUS RHYTHM DELAYED PRECORDIAL R/S TRANSITION BORDERLINE ECG COMPARED TO ECG 12/12/2021 20:25:21 NO SIGNIFICANT CHANGES Electronically Signed On 09-09-2022 6:29:42 CDT by Melchor Gooden D.O.
[2022-09-08 22:14] LABS: Basophils Absolute Auto 0.1 K/mm3 (0.0-0.1); Basophils Percent Auto 0.7 % (0.2-1.2); Eosinophils Absolute Auto 0.1 K/mm3 (0-0.3); Eosinophils Percent Auto 2.1 % (0-4.4); Hematocrit 40.9 % (42.0-52.0); Hemoglobin 13.5 g/dL (14.0-18.0); Immature Granulocyte Absolute 0.03 K/mm3 (0.00-0.031); Immature Granulocyte Percent A 0.4 % (0-0.5); Lymphocytes Absolute Auto 1.73 K/mm3 (0.9-3.2); Lymphocytes Percent Auto 25.7 % (18.3-44.2); Mean Corpuscular Hemoglobin 28.1 pg (26-34); Mean Corpuscular Volume 85.2 fl (80-100); Mean Platelet Volume 10.4 fl (7.4-10.4); Monocytes Absolute Auto 0.8 K/mm3 (0.1-0.6); Monocytes Percent Auto 11.4 % (2.6-8.5); Neutrophils Percent Auto 59.7 % (45.5-73.1); Platelet Count Result 229 k/mm3 (150-375); Red Cell Distribution Width 14.2 % (11.5-14.5); White Blood Count 6.7 K/mm3 (4.5-10.0)
[2022-09-08 22:24] LABS: INR 1.1; Prothrombin Time 14.8 Seconds (11.1-14.7)
[2022-09-08 22:25] LABS: Partial Thromboplastin Time 30.5 SECONDS (22.3-36.8)
[2022-09-08 22:27] LABS: Alanine Aminotransferase 20 U/L (6-50); Albumin Level 4.3 g/dL (3.5-5.1); Alkaline Phosphatase 71 U/L (38-126); Anion Gap 13 mmol/L (8-16); Aspartate Amino Transferase 22 U/L (17-59); Bilirubin,Total 0.5 mg/dL (0.2-1.3); Blood Urea Nitrogen 42 mg/dL (9-20); Calcium 8.2 mg/dL (8.4-10.2); Carbon Dioxide 24 mmol/L (22-30); Chloride 98 mmol/L (98-107); Estimated CRCL calculation 35 ml/min; Estimated Glomerular Filt Rate 26; Glucose 201 mg/dL (65-110); Potassium 3.7 mmol/L (3.4-5.0); Sodium 135 mmol/L (137-145)
[2022-09-08 22:39] LABS: Troponin I < 0.012 ng/mL (0.000-0.034)
[2022-09-08 23:07] VITALS: BP 134/80; PULSE 68; RESP 14; O2SAT 98
--- NOTE | 2022-09-08 23:10 | PC.NURSE ---
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 He also noted sharp pain to his left arm. Pt reports dizziness and SOB resolved when he sat down but was exacerbated with any kind of activity. Pt reports he was driving from [place] to [place] when he had to heat treat puller so his could drive because the pain in his arm was so severe. States he took two muscle relaxers [employer]. He denies any pain to his arm at this time. Pt moves all extremities equally, speech is clear, pupils PEARRL.
--- NOTE | 2022-09-08 23:47 | ED.NEUROSD ---
HPI - Neuro Symptoms/Deficit General Chief Complaint: Suspected CVA Stated Complaint: high blood pressure/left arm weakness/dizziness Time Seen by Provider: 09/08/22 22:59 History of Present Illness HPI Narrative: Is a 62-year-old male presenting ED with chief complaint of dizziness and left arm pain. Patient has been working long hours on the farm. He worked for 4 hours this morning and then around noon he started to get dizzy. [place] like he cannot catch his balance. patient denies any falls. He did not have any chest pain. He did develop left forearm pain at that time. No weakness. Patient did not have double vision, dysarthria dysphagia or loss of coordination. No weakness on either side. Patient notes that he has only had about 1 bottle of water today. He denies chest pain, difficulty breathing, abdominal pain, nausea vomiting or diarrhea. Related Data Home Medications Medication Instructions Recorded Confirmed aspirin 81 mg tablet,delayed 81 mg PO DAILY 06/19/20 09/07/22 release carvedilol 6.25 mg tablet 6.25 mg PO BID 12/29/20 09/07/22 omeprazole 40 mg capsule,delayed 40 mg PO BID 12/29/20 09/07/22 release Allergies Allergy/AdvReac Type Severity Reaction Status Date / Time No Known Allergies Allergy Unknown Verified 09/08/22 21:43 [facility] Past Medical History Medical History CAD (coronary artery disease) CHF (congestive heart failure) Diabetes Dysphagia Eosinophilic esophagitis GERD (gastroesophageal reflux disease) Morbid obesity Obese [place] (obstructive sleep apnea) Surgical History Surgical History H/O cervical discectomy 01/18/21 C5-C7 discectomy and fusion at [facility] History of appendectomy History of cholecystectomy History of inguinal hernia repair Family History Family History Father Pancreatic cancer Mother Breast cancer Lung cancer Sibling Diabetes mellitus Hypertension Breast cancer Sibling Hypertension Social History Social History Smoking status: Current some day smoker Tobacco type: cigars Second hand tobacco smoke exposure: No Additional smoking assessment comments: STOPPED CHEWING 1999 Alcohol intake: current Drinks per week: 12 Alcohol use details: BEER Substance use: never Substance use type: does not use Living arrangements: with family Occupation/Education: occupation 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 Head: atraumatic. EYES: EOMI, NOSE: Atraumatic NECK: Trachea midline RESPIRATORY: No increased rate of breathing clear to auscultation CARDIOVASCULAR: RRR, no peripheral edema ABDOMINAL: distended, but nontender no guarding or rebound -at baseline MUSCULOSKELETAl: No obvious deformities, distal phalanx on 2nd digit of left hand is amputated. NEURO: Alert. Cranial nerves 2-12 grossly intact. Sensation light touch, motor function cerebellar function intact for 4 extremities. Gait exam was normal. SKIN:: Warm, dry. Normal color PSYCHIATRIC: Normal affect Course Vital Signs Vital signs: Vital Signs Temperature 98.1 F 09/08/22 21:45 Pulse Rate 75 09/08/22 21:45 Respiratory Rate 18 09/08/22 21:45 Blood Pressure 133/69 09/08/22 21:45 Pulse Oximetry 92 09/08/22 21:45 Oxygen Delivery Room Air 09/08/22 21:45 Temperature 98.1 F 09/08/22 21:45 Pulse Rate 68 09/08/22 23:07 Respiratory Rate 14 09/08/22 23:07 Blood Pressure 134/80 09/08/22 23:07 Pulse Oximetry 98 09/08/22 23:07 [employer]
[2022-09-09] MEDS: SODIUM CHLORIDE 0.9% IV 2,000 ML 999 ML IV CONT (00:07)
[2022-09-09] MEDS: HYDROcodone/acetaminophen (*CRX) 5-325 MG TABLET 1 TAB PO (00:09)
[2022-09-09 02:35] LABS: Anion Gap 10 mmol/L (8-16); Blood Urea Nitrogen 38 mg/dL (9-20); Calcium 7.8 mg/dL (8.4-10.2); Carbon Dioxide 26 mmol/L (22-30); Chloride 102 mmol/L (98-107); Estimated CRCL calculation 44 ml/min; Estimated Glomerular Filt Rate 34; Glucose 121 mg/dL (65-110); Potassium 3.5 mmol/L (3.4-5.0); Sodium 138 mmol/L (137-145)
--- NOTE | 2022-09-09 02:55 | PC.NURSE ---
Report given to Chela HANKINS
== END 2022-09-09 02:25 | disposition home or self-care (01) ==
PROVIDERS: Emergency Provider Emergency Medicine; PCP Family Medicine Adolescent Medicine
DX: E86.0 Dehydration (principal); R42 Dizziness and giddiness; E11.42 Type 2 diabetes mellitus with diabetic polyneuropathy; N17.9 Acute kidney failure, unspecified; I50.9 Heart failure, unspecified; I25.10 Atherosclerotic heart disease of native coronary artery without angina pectoris; K21.9 Gastro-esophageal reflux disease without esophagitis; G47.33 Obstructive sleep apnea (adult) (pediatric); E66.01 Morbid (severe) obesity due to excess calories; Z68.41 Body mass index [BMI] 40.0-44.9, adult; Z90.49 Acquired absence of other specified parts of digestive tract; Z98.1 Arthrodesis status; F17.290 Nicotine dependence, other tobacco product, uncomplicated; Z79.84 Long term (current) use of oral hypoglycemic drugs; Z79.82 Long term (current) use of aspirin
CPT/HCPCS: 36415; 70450; 70496; 70498; 71045; 80048; 80053; 84484; 85025; 85610; 85730; 93005; 96360; 96361; 99284; A9270; J7030; Q9967

== ENCOUNTER 2024-01-23 11:02 | Outpatient (CLI) | payer BC, SELFPAY ==
--- NOTE | ~2024-01-23 | XR_ITS ---
3 VIEWS LUMBAR SPINE Ordering provider: Stefania Kingston APRN History: . G57.11 - Meralgia paresthetica, right lower limb . Comparison: December 17, 2019 FINDINGS: VERTEBRAL BODIES: No visible fracture or subluxation. DISK SPACES: Normal. Facet joint disease at the level of L4-L5 and L5-S1. SOFT TISSUES: Normal. IMPRESSION: No acute osseous abnormality lumbar spine. Reviewed, dictated and finalized at location A.
== END 2024-01-23 11:03 | disposition home or self-care (01) ==
PROVIDERS: PCP Nurse Practitioner Family; Visit Provider Nurse Practitioner Family
DX: G57.11 Meralgia paresthetica, right lower limb (principal)
CPT/HCPCS: 72100

== ENCOUNTER 2024-02-28 13:58 | Outpatient (CLI) | payer BC, SELFPAY ==
--- NOTE | ~2024-02-28 | MR_ITS ---
EXAMINATION: MR lumbar spine wo con DATE: 02/28/2024 14:32 INDICATION: Low back pain, unspecified. TECHNIQUE: Magnetic resonance imaging (MRI) of the lumbar spine was performed without intravenous con trast. Sequences included sagittal T2-weighted FSE, sagittal T2-weighted FS FSE, sagittal T1-weighted FSE, and axial T2-weighted FSE. COMPARISON: Lumbar spine radiographs 01/23/2024 FINDINGS: There is 4 degrees dextrocurvature lumbar spine. Vertebral body heights are normal. There i s mildly decreased disc height at L3-L4 and L4-L5. The distal spinal cord signal intensity is normal. The conus medullaris is at L1. The following disc levels are specifically discussed: L1-L2: The disc does not extend beyond the endplate margin. There is mild bilateral facet joint osteo arthritis. There is no neural foraminal stenosis. There is no central canal stenosis. L2-L3: The disc is bulging. There is mild bilateral facet joint osteoarthritis. There is mild bilater al neural foraminal stenosis. There is no central canal stenosis. L3-L4: The disc is bulging. There is mild bilateral facet joint osteoarthritis. There is mild right a nd moderate left neural foraminal stenosis. There is mild central canal stenosis. L4-L5: The disc is bulging and has an annular fissure. There is severe bilateral facet joint osteoart hritis. There is moderate bilateral neural foraminal stenosis. There is mild central canal stenosis. L5-S1: The disc is bulging. There is moderate right and mild left facet joint osteoarthritis. There i s no neural foraminal stenosis. There is mild central canal stenosis. IMPRESSION: 1. Moderate lumbar spondylosis. Reviewed, dictated and finalized at location B.
== END 2024-02-28 13:59 | disposition home or self-care (01) ==
PROVIDERS: Visit Provider Nurse Practitioner Family
DX: M47.816 Spondylosis without myelopathy or radiculopathy, lumbar region (principal)
CPT/HCPCS: 72148